=== PATIENT | male | born 1955 | race Caucasian/White ===

== ENCOUNTER → 2024-07-05 10:06 | Outpatient (REF) | payer MEDICARE, SELFPAY ==
--- NOTE | 2024-07-05 12:57 | PN.DE.MGMTRT ---
Insulin Management
- -
07/05/[address] Dr. Staton. Patient is 69 years old with history of type 1 diabetes for 61 years. Currently taking Tresiba 17 units in the AM with Numalog based on a carb ratio and correction factor per Dr. Staton.
Dr. Staton has encouraged patient to consider pump therapy but patient has been reluctant to discuss. His Chely attended the visit and emailed this AM with hopes to encourage Jm to consider pump therapy.
I examined his abdomen where he takes his injections, there is lipohypertrophy below the umbilicus bilaterally. I discussed with he and his the importance of avoiding those sites for injections and moving to sites above the sites with
lipohypertrophy. He stated no one ever told him this. We discussed his DexCom and the advances in glucose monitoring, which he appreciates since it will alert him if glucose is either too high or too low.
I did then bring up the advantage of pump therapy with the ability to fractionalize both basal and bolus insulin which both he and his would be a significant improvement. He expressed concern about the size of the pump and the insertion. I
provided a tutorial using an infusion set and showing him the actual size of the site that would be on his skin as well as how it is inserted. We discussed everyday wear and benefits of pump calculating insulin as well as use of Control IQ where
subtle insulin adjustments could be made without his having to take action.
His reminisced about his glass syringe and how things have changed and how this might be the right time to pursue a pump.
The are due to go to [place] until August. I asked that they follow glucose closely and let me or Dr. Staton know if there were any lows as this could happen with the use of new injection sites. They will communicate by phone or email to me.
They will let me know if they want to proceed with a new pump.
Will follow with patient.
Diabetes History
- -
Type of Diabetes: 1
Pre-Admission Diabetes Regimen
Insulin Pump Settings
IP Diabetes Regimen
Patient Education
== END ==
LOC: DES 10:06
PROVIDERS: ATTENDING PHYSICIAN Internal Medicine Endocrinology, Diabetes & Metabolism
DX: E11.65 Type 2 diabetes mellitus with hyperglycemia (principal)
CPT/HCPCS: 99078